=== PATIENT | female | born 1970 | race Caucasian/White ===

== ENCOUNTER 2022-08-29 07:35 | Emergency (ER) | payer MEDICAID ==
[~2022-08-29] VITALS: Ht 170.2 cm; Wt 104.3 kg
[2022-08-29] MEDS ORDERED: KETOROLAC 60 MG VIAL (30MG/ML) IM ONE (08:00)
[2022-08-29] MEDS ORDERED: CLINDAMYCIN 150 MG CAP PO ONE (08:00)
[2022-08-29] MEDS ORDERED: CLIN-141 PO (08:27)
[2022-08-29 08:39] VITALS: BP 144/56
== END 2022-08-29 09:13 | disposition home or self-care (01) ==
LOC: EDH 07:35
DX: K04.7 Periapical abscess without sinus (principal); K05.10 Chronic gingivitis, plaque induced; I10 Essential (primary) hypertension; Z88.0 Allergy status to penicillin
CPT/HCPCS: 99283; 96372; J1885